=== PATIENT | female | born 1990 | race Hispanic/Latino ===

== ENCOUNTER 2020-03-25 17:58 | Inpatient (IN) | payer SELFPAY ==
[~2020-03-25] VITALS: Ht 157.5 cm; Wt 54.4 kg
[2020-03-25] MEDS ORDERED: SODIUM CHLORIDE 0.9% 1000ML 1,000 ML IV ONE ×2 (18:18→18:50)
[2020-03-25] MEDS ORDERED: ONDANSETRON HCL 4 MG/2 ML VIAL ONE (18:18)
[2020-03-25 18:24] LABS: BASOPHILS % (AUTO) 0.3 % (0.0-5.0); HEMATOCRIT 47.1 % (36-48); LYMPHOCYTES % (AUTO) 12.6 % (21.0-51.0); MEAN CORPUSCULAR HEMOGLOBIN 29.9 pg (27.0-33.0); MEAN CORPUSCULAR HGB CONC 33.1 g/dL (32.0-36.0); MEAN CORPUSCULAR VOLUME 90.2 fL (79-99); MONOCYTES % (AUTO) 8.4 % (3.0-13.0); NEUTROPHILS % (AUTO) 77.5 % (40.0-77.0); PLATELET COUNT (AUTO) 338 K/uL (130-400); RED BLOOD CELL COUNT(AUTO) 5.22 MIL/uL (4.00-5.50); RED CELL DISTRIBUTION WIDTH 13.7 % (11.0-15.5); WHITE BLOOD COUNT (AUTO) 27.8 K/uL (4.8-10.8)
[2020-03-25 18:46] LABS: POTASSIUM 4.7 mmol/L (3.5-5.1)
[2020-03-25] MEDS ORDERED: CEFTRIAXONE SODIUM 1 GM ONE (18:50)
[2020-03-25 18:59] LABS: CREATININE 1.4 mg/dL (0.5-1.5)
[2020-03-25] MEDS ORDERED: MORPHINE SULFATE 4 MG/1ML SYG ONE (19:05)
[2020-03-25] MEDS ORDERED: IOHEXOL-350 75 ML VIAL IV ONE (19:05)
[2020-03-25 19:13] LABS: ALBUMIN 2.4 g/dL (3.5-5.0); BILIRUBIN,DIRECT 0.3 mg/dL (0.0-0.3); BILIRUBIN,TOTAL 0.7 mg/dL (0.2-1.0); TOTAL PROTEIN, SERUM 6.5 g/dL (6.0-8.3)
[2020-03-25] MEDS ORDERED: VANCOMYCIN 1GM+NS 250ML 250 ML IV ONE (19:29)
[2020-03-25] MEDS ORDERED: ZOSYN 3.375GM+NS 50ML 50 ML IV ONE (19:29)
[2020-03-25 19:41] LABS: APPEARANCE,URINE Turbid (CLEAR); BILIRUBIN,URINE Small (NEGATIVE); COLOR,URINE Dark Yellow (YELLOW); GLUCOSE, URINE (UA) Negative (NEGATIVE); KETONES,URINE Negative (NEGATIVE); LEUKOCYTE ESTERASE ,URINE Negative (NEGATIVE); NITRATE,URINE Negative (NEGATIVE); OCCULT BLOOD,URINE Negative (NEGATIVE); PROTEIN,URINE Negative (NEGATIVE)
[2020-03-25 20:18] LABS: BACTERIA,URINE Few /HPF (None Seen); MUCUS,URINE Moderate LPF (None Seen); SQUAMOUS EPITHELIAL CELL,UR Few /HPF (0-2)
[2020-03-25] MEDS ORDERED: DEXTROSE 5%-LACTATED RINGERS 1,000 ML IV ONE (21:59)
[2020-03-25] MEDS ORDERED: MEPERIDINE-PF 50 MG/ML SYG ONE (22:32)
[2020-03-25] MEDS ORDERED: ONDANSETRON HCL 4 MG/2 ML VIAL IVP PRN (22:45)
[2020-03-25 23:11] VITALS: BP 111/72
--- NOTE | 2020-03-25 23:20 | NUR ---
pain Patient requesting pain medication and nausea medication. Demerol 50mg SIVP and Phenergan 25mg IM to Lt buttocks given.
--- NOTE | 2020-03-26 | NUR ---
comfort Patient resting quietly with eyes closed. No distress noted.
--- NOTE | 2020-03-26 02:50 | NUR ---
Comfort Nausea and vomiting noted. Zofran offered. Patient consents for medication
[2020-03-26 03:00] VITALS: BP 107/82
[2020-03-26 07:20] LABS: BASOPHILS % (AUTO) 0.3 % (0.0-5.0); LYMPHOCYTES % (AUTO) 9.3 % (21.0-51.0); MEAN CORPUSCULAR HGB CONC 32.3 g/dL (32.0-36.0); MONOCYTES % (AUTO) 10.5 % (3.0-13.0); NEUTROPHILS % (AUTO) 78.8 % (40.0-77.0); PLATELET COUNT (AUTO) 272 K/uL (130-400); RED BLOOD CELL COUNT(AUTO) 4.73 MIL/uL (4.00-5.50); WHITE BLOOD COUNT (AUTO) 27.1 K/uL (4.8-10.8)
[2020-03-26 07:29] LABS: ALBUMIN 1.9 g/dL (3.5-5.0); BILIRUBIN,TOTAL 0.4 mg/dL (0.2-1.0); POTASSIUM 4.9 mmol/L (3.5-5.1); TOTAL PROTEIN, SERUM 5.5 g/dL (6.0-8.3)
[2020-03-26 07:49] VITALS: BP 95/70
--- NOTE | 2020-03-26 08:00 | NUR ---
ASSESSMENT: RESTING IN BED, DENIES PAIN OR N/V. DR MUNOZ ASSESSED PT AND DISCUSSED POC, WILL KEEP NPO FOR TODAY. PT STATES SHE FEELS MUCH BETTER.
[2020-03-26 11:17] VITALS: BP 107/71
--- NOTE | 2020-03-26 12:38 | NUR ---
REST: SITTING UP IN BED, HAPPY.
[2020-03-26] MEDS ORDERED: DEXTROSE 5%-LACTATED RINGERS 1,000 ML IV SCH (12:45)
--- NOTE | 2020-03-26 15:26 | NUR ---
HYGEINE: TOOK SHOWER.
[2020-03-26 16:18] VITALS: BP 98/64
--- NOTE | 2020-03-26 16:26 | NUR ---
NUTRITION: PROVIDED WITH H2O AND JELLO.
[2020-03-26 19:23] VITALS: BP 106/74
--- NOTE | 2020-03-26 19:34 | NUR ---
cm note met with patient and states resides at home with spouse, independent with ambulation and adls. no dme. [facility] [place]. provided community resource pkt for medication assist, and local clinics in the area. pt verbalizes understanding. no dc needs. Addendum: 03/26/20 at 1939 by CUCA WANG CM Amended: Links added.
[2020-03-26] MEDS: MEPERIDINE-PF 50 MG/ML SYG IVP PRN (20:29)
[2020-03-26] MEDS: PROMETHAZINE HCL 25 MG/ML 1ML AMPULE IM PRN (20:30)
[2020-03-26] MEDS ORDERED: [UNRECOGNIZED DRUG - OTHER] BC (23:16)
[2020-03-26 23:25] VITALS: BP 103/74
[2020-03-26] MEDS ORDERED: [UNRECOGNIZED DRUG - OTHER] PO (23:47)
[2020-03-27 03:00] VITALS: BP 106/80
[2020-03-27 04:54] LABS: BASOPHILS % (AUTO) 0.3 % (0.0-5.0); EOSINOPHILS % (AUTO) 0.1 % (0.0-8.0); MEAN CORPUSCULAR HEMOGLOBIN 30.1 pg (27.0-33.0); MEAN CORPUSCULAR VOLUME 91.4 fL (79-99); MONOCYTES % (AUTO) 11.8 % (3.0-13.0); NEUTROPHILS % (AUTO) 65.4 % (40.0-77.0); PLATELET COUNT (AUTO) 282 K/uL (130-400); RED BLOOD CELL COUNT(AUTO) 4.05 MIL/uL (4.00-5.50); RED CELL DISTRIBUTION WIDTH 13.8 % (11.0-15.5)
[2020-03-27 05:08] LABS: CREATININE 0.9 mg/dL (0.5-1.5); POTASSIUM 4.5 mmol/L (3.5-5.1)
[2020-03-27] MEDS: PROMETHAZINE HCL 25 MG/ML 1ML AMPULE IM PRN (05:17)
[2020-03-27] MEDS: MEPERIDINE-PF 50 MG/ML SYG IVP PRN (05:18)
[2020-03-27] MEDS ORDERED: [UNRECOGNIZED DRUG - OTHER] PO (06:08)
[2020-03-27] MEDS ORDERED: BISACODYL 10 MG SUPP.RECT RC SCH (07:00)
[2020-03-27 07:20] VITALS: BP 107/73
--- NOTE | 2020-03-27 07:55 | NUR ---
ABDOMINAL GIRTH ABDOMINAL GIRTH MEASURED AT 35 1/2 INCHES Addendum: 03/27/20 at 1754 by JEROME DOTSON RN RN Amended: Links added.
--- NOTE | 2020-03-27 09:30 | NUR ---
DR. MUNOZ AT BEDSIDE TO ASSESS AND TALK TO PT. NEW ORDERS RECEIVED.
[2020-03-27 11:15] VITALS: BP 109/75
[2020-03-27] MEDS ORDERED: MAGNESIUM HYDROXIDE 30 ML/UDCUP PO SCH (13:00)
[2020-03-27 16:43] VITALS: BP 104/69
[2020-03-27 20:20] VITALS: BP 113/81
--- NOTE | 2020-03-27 20:20 | NUR ---
RAMA GOMEZ [facility] Addendum: 03/27/20 at 2133 by MARY JO YUSUF LVN Amended: Links added.
--- NOTE | 2020-03-27 20:20 | NUR ---
status up to BR, had green watery stool., ENCOURAGED TO TURN TO SIDES, PUSH FLUIDS, NPO AFTER MN, Addendum: 03/27/20 at 2132 by MARY JO YUSUF LVN Amended: Links added.
[2020-03-27 23:00] VITALS: BP 113/74
--- NOTE | 2020-03-27 23:50 | NUR ---
report received from radha bolden lvn
[2020-03-28 03:57] VITALS: BP 105/69
--- NOTE | 2020-03-28 04:10 | NUR ---
ABDOMINAL GIRTH 34 CM
--- NOTE | 2020-03-28 06:00 | NUR ---
PT UP TO SHOWER. PT CHANGED INTO CLEAN GOWN, LINENS CHANGED.
--- NOTE | 2020-03-28 06:40 | NUR ---
STIPPLER IN ROOM FOR U/S.
[2020-03-28 07:23] LABS: INR 0.91 (0.85-1.15); PARTIAL THROMBOPLASTIN TIME 22.9 SEC (26.3-35.5); PROTHROMBIN TIME 9.9 SEC (9.6-11.6)
[2020-03-28] MEDS ORDERED: FUROSEMIDE 10 MG/ML 2ML VIAL IV SCH (07:45)
[2020-03-28 07:50] VITALS: BP 107/66
--- NOTE | 2020-03-28 07:50 | NUR ---
ABDOMINAL GIRTH ABDOMINAL GIRTH MEASURED AT 34 1/4 INCHES
[2020-03-28 08:17] LABS: HEMATOCRIT 35.8 % (36-48); MEAN CORPUSCULAR HEMOGLOBIN 29.9 pg (27.0-33.0); MEAN CORPUSCULAR HGB CONC 32.4 g/dL (32.0-36.0); MEAN CORPUSCULAR VOLUME 92.3 fL (79-99); RED BLOOD CELL COUNT(AUTO) 3.88 MIL/uL (4.00-5.50); RED CELL DISTRIBUTION WIDTH 13.8 % (11.0-15.5); WHITE BLOOD COUNT (AUTO) 17.3 K/uL (4.8-10.8)
[2020-03-28 08:46] LABS: POTASSIUM 5.2 mmol/L (3.5-5.1)
--- NOTE | 2020-03-28 08:55 | NUR ---
PT TAKEN TO IR BY WHEELCHAIR FOR PARACENTESIS.
--- NOTE | 2020-03-28 10:00 | NUR ---
U/S GD PARACENTESIS PROCEDURE PERFORMED BY DR Efrain TELLEZ. PUNCTURE SITE LUQ AND PATIENT TOLERATED PROCEDURE WELL. TOTAL REMOVED 2.4 LITERS OF BLOOD TINGED FLUID. END OF PROCEDURE AT 0940. CATHETER REMOVED AND DRESSING APPLIED. NO BLEEDING NOTED. REPORT GIVEN TO Sloan DOTSON RN AND PATIENT TRANSPORTED TO [place] VIA BED AT 1000. AAO X3 WITH NO C/O PAIN. SPECIMEN SENT TO LAB.
--- NOTE | 2020-03-28 10:30 | NUR ---
ABDOMINAL GIRTH POST PARACENTESIS MEASURED AT 32 3/4 INCHES
[2020-03-28] MEDS: DOCUSATE SODIUM 100 MG CAP PO SCH ×2 (10:45→20:34)
[2020-03-28 11:32] VITALS: BP 107/64
[2020-03-28 14:02] LABS: APPEARANCE BODY FLUID CLOUDY (CLEAR); BODY FLUID WBC 135 /cu. mm.; COLOR,BODY FLUID RED (LT YELLOW); SPECIMENTYPE,BODY FLUID ASCITES; TOTAL VOLUME,BODY FLUID 2700 mL
[2020-03-28 14:03] LABS: BODY FLUID RBC 43350 /cu. mm.
[2020-03-28 14:07] LABS: BF LYMPHOCYTE 17 %; BF MESOTHELIAL 29 %; BF MONOCYTE 15 %
[2020-03-28 16:25] VITALS: BP 96/66
[2020-03-28 20:50] VITALS: BP 96/59
[2020-03-28 23:51] VITALS: BP 95/59
[2020-03-29 03:33] VITALS: BP 95/60
[2020-03-29] MEDS ORDERED: FUROSEMIDE 10 MG/ML 2ML VIAL IV SCH (06:00)
[2020-03-29 07:41] LABS: HEMATOCRIT 33.1 % (36-48); MEAN CORPUSCULAR HEMOGLOBIN 30.5 pg (27.0-33.0); MEAN CORPUSCULAR HGB CONC 33.8 g/dL (32.0-36.0); MEAN CORPUSCULAR VOLUME 90.2 fL (79-99); RED BLOOD CELL COUNT(AUTO) 3.67 MIL/uL (4.00-5.50); RED CELL DISTRIBUTION WIDTH 13.5 % (11.0-15.5); WHITE BLOOD COUNT (AUTO) 16.1 K/uL (4.8-10.8)
[2020-03-29 07:47] VITALS: BP 109/71
[2020-03-29 08:05] LABS: CREATININE 0.9 mg/dL (0.5-1.5)
--- NOTE | 2020-03-29 09:25 | NUR ---
pt is discharged, verbal and written discharge instructions given, pls refer to [facility]. informed of the follow up appointment, no prescription given. informed to call the doctor for further concerns. pt voiced understanding to all things discussed. Addendum: 03/29/20 at 0939 by RENEE HARDING RN Amended: Links added.
[2020-03-29] MEDS: DOCUSATE SODIUM 100 MG CAP PO SCH (09:34)
--- NOTE | 2020-03-29 10:55 | NUR ---
pt is dismissed in stable condition, brought to private car via wheelchair by Stephanie - L&D tech. Addendum: 03/29/20 at 1102 by RENEE HARDING RN Amended: Links added.
== END 2020-03-29 10:57 | disposition home or self-care (01) | DRG 920 ==
LOC: EDH 17:58 → EDHIP 17:59 → WSH 22:45
PROVIDERS: ADMIT Specialist; ATTEND Specialist
PROC: 0W9G3ZZ Drainage of Peritoneal Cavity, Percutaneous Approach (ICD-10-PCS; principal; 2020-03-28)
DX: N98.1 Hyperstimulation of ovaries (principal); R18.8 Other ascites
CPT/HCPCS: 36415; 49083; 74177; 76856; 80048; 80053; 80076; 81001; 83605; 83690; 84702; 85025; 85027; 85610; 85730; 87040; 87071; 87205; 89051; 99291; G0378; J0696; J1940; J2175; J2270; J2405; J2543; J2550; J3370; J3490; J7030; Q9967

== ENCOUNTER 2020-07-21 16:48 | Emergency (ER) | payer MEDICAID ==
[~2020-07-21 16:48] MED LIST: [UNRECOGNIZED DRUG - OTHER] BC; [UNRECOGNIZED DRUG - OTHER] PO; [UNRECOGNIZED DRUG - OTHER] PO
[2020-07-21 17:31] LABS: BASOPHILS % (AUTO) 0.2 % (0.0-5.0); EOSINOPHILS % (AUTO) 0.9 % (0.0-8.0); HEMATOCRIT 38.1 % (36-48); LYMPHOCYTES % (AUTO) 23.1 % (21.0-51.0); MEAN CORPUSCULAR HEMOGLOBIN 28.6 pg (27.0-33.0); MEAN CORPUSCULAR HGB CONC 34.1 g/dL (32.0-36.0); MEAN CORPUSCULAR VOLUME 83.7 fL (79-99); MONOCYTES % (AUTO) 8.7 % (3.0-13.0); NEUTROPHILS % (AUTO) 66.9 % (40.0-77.0); PLATELET COUNT (AUTO) 254 K/uL (130-400); RED BLOOD CELL COUNT(AUTO) 4.55 MIL/uL (4.00-5.50); RED CELL DISTRIBUTION WIDTH 15.1 % (11.0-15.5); WHITE BLOOD COUNT (AUTO) 10.2 K/uL (4.8-10.8)
== END 2020-07-21 20:50 | disposition home or self-care (01) ==
LOC: EDH 16:48
DX: O20.0 Threatened abortion (principal); Z3A.01 Less than 8 weeks gestation of pregnancy
CPT/HCPCS: 36415; 76801; 76817; 84702; 85025

== ENCOUNTER 2020-08-12 13:15 | Emergency (ER) | payer MEDICAID ==
[2020-08-12 13:44] LABS: BASOPHILS % (AUTO) 0.3 % (0.0-5.0); EOSINOPHILS % (AUTO) 2.2 % (0.0-8.0); HEMATOCRIT 26.1 % (36-48); MEAN CORPUSCULAR HEMOGLOBIN 34.6 pg (27.0-33.0); MEAN CORPUSCULAR HGB CONC 33.7 g/dL (32.0-36.0); MEAN CORPUSCULAR VOLUME 102.8 fL (79-99); MONOCYTES % (AUTO) 13.3 % (3.0-13.0); NEUTROPHILS % (AUTO) 52.9 % (40.0-77.0); PLATELET COUNT (AUTO) 114 K/uL (130-400); RED BLOOD CELL COUNT(AUTO) 2.54 MIL/uL (4.00-5.50); WHITE BLOOD COUNT (AUTO) 3.7 K/uL (4.8-10.8)
[2020-08-12 13:53] LABS: BILIRUBIN,URINE NEGATIVE (NEGATIVE); COLOR,URINE YELLOW (YELLOW); GLUCOSE, URINE (UA) NEGATIVE (NEGATIVE); KETONES,URINE NEGATIVE (NEGATIVE); LEUKOCYTE ESTERASE ,URINE NEGATIVE (NEGATIVE); NITRATE,URINE NEGATIVE (NEGATIVE); OCCULT BLOOD,URINE MODERATE (NEGATIVE); PROTEIN,URINE NEGATIVE (NEGATIVE); UROBILINOGEN,URINE 0.2 mg/dL (0.2-1.0)
[2020-08-12 13:56] LABS: APPEARANCE,URINE SLIGHTLY CLOUDY (CLEAR)
[2020-08-12 14:02] LABS: BILIRUBIN,TOTAL 0.3 mg/dL (0.2-1.0); CREATININE 2.1 mg/dL (0.5-1.5); POTASSIUM 3.8 mmol/L (3.5-5.1); TOTAL PROTEIN, SERUM 6.4 g/dL (6.0-8.3)
[2020-08-12 14:04] LABS: BACTERIA,URINE Rare /HPF (None Seen); MUCUS,URINE Rare LPF (None Seen); RBC,URINE 26-50 /HPF (0-1); SQUAMOUS EPITHELIAL CELL,UR Few /HPF (0-2); WBC,URINE None Seen /HPF (0-1)
[2020-08-12] MEDS ORDERED: SODIUM CHLORIDE 0.9% 1000ML 1,000 ML IV ONE (14:41)
== END 2020-08-12 16:10 | disposition home or self-care (01) ==
LOC: EDH 13:15
DX: O03.9 Complete or unspecified spontaneous abortion without complication (principal); O99.011 Anemia complicating pregnancy, first trimester; O99.281 Endocrine, nutritional and metabolic diseases complicating pregnancy, first trimester; E86.0 Dehydration; O26.831 Pregnancy related renal disease, first trimester; N28.9 Disorder of kidney and ureter, unspecified; Z20.822 Contact with and (suspected) exposure to COVID-19; Z3A.09 9 weeks gestation of pregnancy
CPT/HCPCS: 36415; 80053; 81001; 84702; 85025; 86900; 86901; 87426; 96360; 99284; J7030; U0003